=== PATIENT | female | born 1950 | race Caucasian/White ===

== ENCOUNTER → 2022-06-06 | Outpatient (CLI) | payer MEDICARE ==
--- NOTE | 2022-06-06 20:21 | FL ---
EXAMINATION TYPE: FL UGI DATE OF EXAM: 06/06/2022 COMPARISON: None HISTORY: Gastroesophageal reflux TECHNIQUE: A double air contrast UGI study is performed. FINDINGS: Fluoroscopy time: 1 minute 22 seconds. Images: 66 Gastroesophageal reflux was evident. Multiple episodes during this examination The esophagus is normal caliber and has normal contour to the gastroesophageal junction. Gastroesopha geal junction opens to normal caliber. Fundus body and antrum of the stomach appear normal. Barium readily empties through a normally positi oned duodenal cap and sweep. Ligament of Treitz is in normal position. No intraluminal or extralumina l defect is evident. There appears to be complete stripping esophageal folds in the horizontal drinking position. Minimal hiatal hernia is identified with shaft during horizontal drinking. IMPRESSIONS: 1. Gastroesophageal reflux.
== END | disposition home or self-care (01) ==
LOC: RADUSWWP 09:48
PROVIDERS: ATTEND Internal Medicine
DX: K21.00 Gastro-esophageal reflux disease with esophagitis, without bleeding (principal)
CPT/HCPCS: 74240